=== PATIENT | female | born 1985 | race Caucasian/White ===

== ENCOUNTER → 2019-09-18 | Outpatient (CLI) | payer OTHER ==
[~2019-09-18] MED LIST: AMOX500C2 PO; DIPH50CA; DM H; FLT05NA16 NSEACH; METH4TAB PO
[2019-09-18 17:11] LABS: BASOPHILS % (AUTO) 0 % (0-10); EOSINOPHILS % (AUTO) 0 % (0-10); HEMATOCRIT 39 % (35-52); HEMOGLOBIN 12.7 G/DL (11.5-16.0); LYMPHOCYTES % (AUTO) 22 % (12-44); MEAN CORPUSCULAR HEMOGLOBIN 30 PG (25-34); MEAN CORPUSCULAR HGB CONC 33 G/DL (32-36); MEAN CORPUSCULAR VOLUME 92 FL (80-99); MEAN PLATELET VOLUME 9.3 FL (7.4-10.4); MONOCYTES # (AUTO) 0.4 X 10^3 (0.0-1.0); MONOCYTES % (AUTO) 4 % (0-12); NEUTROPHILS # (AUTO) 6.6 X 10^3 (1.8-7.8); NEUTROPHILS % (AUTO) 73 % (42-75); PLATELET COUNT 339 10^3/uL (130-400); RED CELL DISTRIBUTION WIDTH 13.3 % (10.0-14.5)
[2019-09-18 17:36] LABS: ALANINE AMINOTRANSFERASE 14 U/L (0-55); ALBUMIN 4.2 GM/DL (3.2-4.5); ALKALINE PHOSPHATASE 37 U/L (40-136); BILIRUBIN,TOTAL 0.4 MG/DL (0.1-1.0); BUN/CREATININE RATIO 12; CALCIUM 9.3 MG/DL (8.5-10.1); CARBON DIOXIDE 22 MMOL/L (21-32); CHLORIDE 104 MMOL/L (98-107); CREATININE SERUM 0.84 MG/DL (0.60-1.30); GFR ESTIMATED > 60; GLUCOSE 91 MG/DL (70-105); SODIUM 137 MMOL/L (135-145)
[2019-09-18 17:57] LABS: FREE T4 (FREE THYROXINE) 0.81 NG/DL (0.70-1.48)
== END ==
LOC: LAB 16:33
PROVIDERS: ATTEND Nurse Practitioner Family
DX: R00.2 Palpitations (principal); R55 Syncope and collapse
CPT/HCPCS: 36415; 80053; 84439; 84443; 85025; 85379

== ENCOUNTER 2019-09-25 08:14 | Outpatient (RCR) | payer OTHER | END 2019-12-24 | disposition home or self-care (01) | LOC: CARD 08:14 | PROVIDERS: ATTEND Nurse Practitioner Family | DX: R00.2 Palpitations (principal); R42 Dizziness and giddiness; R55 Syncope and collapse | CPT/HCPCS: 93225; 93226 ==

== ENCOUNTER 2020-04-07 20:39 | Emergency (ER) | payer OTHER ==
[~2020-04-07] VITALS: Ht 172.7 cm; Wt 77.1 kg
[2020-04-07] MEDS ORDERED: ONDANSETRON 4 MG (ZOFRAN) ORAL DISSOLVE TAB SL STA (21:03)
[2020-04-07] MEDS ORDERED: ANTACID SUSP 30 ML UDC (MYLANTA) PO ONE (21:15)
[2020-04-07] MEDS ORDERED: LIDOCAINE 2% VISCOUS 15 ML UDC PO ONE (21:15)
[2020-04-07] MEDS ORDERED: PANTOPRAZOLE 40 MG (PROTONIX) TAB PO ONE (21:45)
--- NOTE | 2020-04-07 21:45 | ED Chest Pain ---
General Chief Complaint: Chest Pain Stated Complaint: COVID +;CHEST PAIN;HIGH BP Nursing Triage Note: Pt ambulates to room #9 with c/o CP. Pt reports she tested + for COVID-19 on 03/30/20. Pt reports on this day at approx 2000 she began to experience medial abd discomfort radiating to R arm. Pt describes discomfort as "pressure." Pt reports discomfot to be intermittent. Pt denies fever, chills, or SOA. A&OX4. Nursing Sepsis Screen: No Definite Risk Source: patient Exam Limitations: no limitations History of Present Illness Date Seen by Provider: Apr 07, 2020 Time Seen by Provider: 20:55 Initial Comments This 34-year-old woman presents to the ER by private vehicle with history as stated above in nursing triage note. Her chest pain really seems to be more of an epigastric pain and tenderness that radiates into the chest. She had a throbbing pain in the right arm that has resolved. She is not significantly short of breath and oxygen saturation is 100 percent on room air. Pain is worse with deep breathing and epigastric palpation. Allergies and Home Medications Allergies Coded Allergies: No Known Drug Allergies (Unverified Allergy, Mild, 12/03/08) Home Medications Amoxicillin 500 Mg Capsule, 1 EACH PO QID FOR INFECTION Prescribed by: OZIEL RUBIO on 12/03/082311 Fluticasone Propionate 16 Gm [place], 2 SPRAYS NSEACH DAILY FOR SINUSES Prescribed by: OZIEL RUBIO on 12/03/082311 Methylprednisolone 4 Mg/Dose-Pack Tab.ds.pk, 0 PO UD FOR SINUSES. Prescribed by: OZIEL RUBIO on 12/03/082311 Patient Home Medication List Home Medication List Reviewed: Yes Review of Systems Review of Systems Constitutional: no symptoms reported EENTM: No Symptoms Reported Respiratory: See HPI Cardiovascular: No Symptoms Reported Gastrointestinal: See HPI Genitourinary: No Symptoms Reported Musculoskeletal: no symptoms reported Skin: no symptoms reported Psychiatric/Neurological: No Symptoms Reported Endocrine: No Symptoms Reported Hematologic/Lymphatic: No Symptoms Reported Past Oaandkb-Ejylfv-Dclkoq Hx Patient Social History Alcohol Use: Rarely Uses Number of Drinks Today: 0 Recreational Drug Use: No Smoking Status: Current Someday Smoker Type Used: Cigarettes 2nd Hand Smoke Exposure: Yes Recent Foreign Travel: No Contact w/Someone Who Travel: No Recent Infectious Disease Expo: No Recent Hopitalizations: No Seasonal Allergies Seasonal Allergies: No Past Medical History Surgeries: No Respiratory: No Cardiac: No Neurological: No Genitourinary: No Gastrointestinal: No Musculoskeletal: No Endocrine: No HEENT: No Cancer: No Psychosocial: No Integumentary: No Physical Exam Vital Signs Vital Signs - First Documented 04/07/20 04/07/20 20:55 20:58 Temp 36.6 Pulse 98 Resp 18 B/P (MAP) 150/83 (105) Pulse Ox 100 O2 Delivery Room Air Capillary Refill : Less Than 3 Seconds Height, Weight, BMI Height: '" Weight: lbs. oz. 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, 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 Skin: Normal Color, Warm/Dry Progress/Results/Core Measures Results/Orders My Orders Orders - ASHA SOTELO MD Ekg Tracing (04/07/20 21:03) Ondansetron Oral Dissolve Tab (Zofran (04/07/20 21:03) Lidocaine 2% Viscous 15 Ml (Xylocaine Vi (04/07/20 21:15) Antacid Suspension (Mylanta Suspension (04/07/20 21:15) Pantoprazole Tablet (Protonix Tablet) (04/07/20 21:45) Medications Given in ED Current Medications Medications Dose Ordered Sig/Michelle Route Start Time Stop Time Status Last Admin Dose Admin Al Hydrox/Mg Hydrox/Simethicone 30 ml ONCE ONCE PO 04/07/20 21:15 04/07/20 21:16 DC 04/07/20 21:11 30 ML Lidocaine HCl 15 ml ONCE ONCE PO 04/07/20 21:15 04/07/20 21:16 DC 04/07/20 21:11 15 ML Pantoprazole Sodium 40 mg ONCE ONCE PO 04/07/20 21:45 04/07/20 21:46 DC 04/07/20 21:50 40 MG Vital Signs/I&O 04/07/20 04/07/20 04/07/20 20:55 20:58 21:55 Temp 36.6 36.6 Pulse 98 84 Resp 18 17 B/P (MAP) 150/83 (105) 129/79 (105) Pulse Ox 100 99 O2 Delivery Room Air Room Air Room Air Blood Pressure Mean: 105 Progress Progress Note : Progress Note Pain improved with GI cocktail and patient felt that this addressed her complaints. Antiacid therapy was recommended and avoidance of NSAIDs was advised as well. See discharge instructions. Initial ECG Impression Date: Apr 07, 2020 Initial ECG Impression Time: 21:06 Initial ECG Rate: 88 Initial ECG Rhythm: Normal Sinus Initial ECG Intervals: WA Initial ECG Impression: Normal Comment Normal sinus rhythm with no ST elevation or depression. WA interval 239 ms. No axis deviation. Departure Impression Primary Impression: Epigastric pain Additional Impressions: Atypical chest pain COVID-19 Disposition: 01 HOME, SELF-CARE Condition: Improved Departure-Patient Inst. Decision time for Depature: 21:41 Referrals: RANDY BLAS MD (PCP/Family) Primary Care Physician Patient Instructions: Acid Reflux and GERD in Adults (DC), Coronavirus Disease 2019 (COVID-19) Overview, Gastritis, Acute Pain, Adult (DC) Add. Discharge Instructions: Gastritis and acid reflux is suspected as the cause of your pain. You may use Tylenol (acetaminophen) up to 1000 mg every 6 hours as needed for pain and fever. Avoid use of ibuprofen if possible as this may worsen stomach pain and acid reflux in the long run. Use an antacid medication such as omeprazole 20 mg or Pepcid (famotidine) 20 mg twice daily for the next couple of weeks. Continue to use for at least 1 to 2 weeks even if pain improves. For additional relief you may add Tums. These medications may be purchased [id number]. Because you have COVID-19, you'l l need someone to pick these up for you while you are quarantine. Return to care if you have worsening symptoms or if use of antacids does not improve your pain. Avoid things that can irritate your stomach further such as large meals, fatty or greasy foods, spicy foods, acidic foods, eating close to bedtime, carbonation, caffeine, chocolate, alcohol, tobacco, or anything else you know irritates your stomach. All discharge instructions reviewed with patient and/or family. Voiced understanding. Copy Copies To 1: RANDY BLAS MD, JOSHUA T MD Apr 07, 2020 21:45
[2020-04-07 21:55] VITALS: BP 129/79
== END 2020-04-07 21:55 | disposition home or self-care (01) ==
LOC: EDUNIT# 20:39 → ER 20:42
DX: R10.13 Epigastric pain (principal); R07.89 Other chest pain; U07.1 COVID-19; F17.210 Nicotine dependence, cigarettes, uncomplicated; Z79.52 Long term (current) use of systemic steroids
CPT/HCPCS: 93005

== ENCOUNTER 2022-10-07 16:56 | Emergency (ER) | payer OTHER ==
[~2022-10-07] VITALS: Ht 172 cm; Wt 83.0 kg
[2022-10-07 17:00] VITALS: BP 167/95
[2022-10-07] MEDS ORDERED: ASPIRIN 81 MG CHEW (CHILDREN'S ASA) PO ONE (17:15)
[2022-10-07 17:18] LABS: BASOPHILS # (AUTO) 0.1 10^3/uL (0.0-0.1); BASOPHILS % (AUTO) 1 % (0-10); EOSINOPHILS # (AUTO) 0.1 10^3/uL (0.0-0.3); EOSINOPHILS % (AUTO) 1 % (0-10); HEMATOCRIT 40 % (35-52); HEMOGLOBIN 13.4 g/dL (11.5-16.0); LYMPHOCYTES # (AUTO) 3.4 10^3/uL (1.0-4.0); LYMPHOCYTES % (AUTO) 34 % (12-44); MEAN CORPUSCULAR HEMOGLOBIN 31 pg (25-34); MEAN CORPUSCULAR HGB CONC 34 g/dL (32-36); MEAN CORPUSCULAR VOLUME 91 fL (80-99); MEAN PLATELET VOLUME 9.2 fL (9.0-12.2); MONOCYTES # (AUTO) 0.6 10^3/uL (0.0-1.0); MONOCYTES % (AUTO) 6 % (0-12); NEUTROPHILS # (AUTO) 5.8 10^3/uL (1.8-7.8); NEUTROPHILS % (AUTO) 58 % (42-75); PLATELET COUNT 389 10^3/uL (130-400)
[2022-10-07 17:22] LABS: ALBUMIN 4.5 GM/DL (3.2-4.5)
--- NOTE | 2022-10-07 17:22 | ED Chest Pain ---
General Chief Complaint: Chest Pain Stated Complaint: CHEST PAIN Nursing Triage Note: PT AMB TO RM 6 CO OF CHEST PRESSURE, HEAVINESS SINCE LAST PM, PT RATES DISCOMFORT 7/10. PT HAS TAKEN XANAX THOUGHT MAYBE D/T ANXIETY. PT VAPES DAILY AND IS CONTROL. PT WAS SENT BY [facility] Source: patient Exam Limitations: no limitations (JESUS VENCES) History of Present Illness Date Seen by Provider: Oct 07, 2022 Time Seen by Provider: 17:20 Initial Comments Patient is a 37-year-old female with a history of anxiety presents to the ED for chest pain. She states yesterday evening pain started between her shoulder blades. This pain migrated to the front part of her chest. Initially was sharp and constant. She took a dose of Xanax last night as she thought it was a panic attack without significant improvement. The pain remained today feels more like heaviness and pressure. She has arm heaviness bilateral. Associated lightheadedness, nausea. She does have a history of tachycardia. She denies of any recent travels or surgeries but does take control. No history of PE. No family history of sudden cardiac or history of IN at an early age. She went to [facility] and was recommended come to ED for further evaluation of the chest pain. She refused anything for pain at this time. Rates the heaviness 7 out of 10. Difficulty taking deep breaths secondary to the discomfort. (JESUS VENCES) Allergies and Home Medications Allergies Coded Allergies: No Known Drug Allergies (Unverified Allergy, Mild, 12/03/08) Patient Home Medication List Home Medication List Reviewed: Yes (JESUS VENCES) Amoxicillin (Amoxicillin) 500 Mg Capsule, 1 EACH PO QID Prescribed by: OZIEL RUBIO on 12/03/082311 Diphenhydramine Hcl (Benadryl) 50 Mg Capsule, (Reported) Entered as Reported by: KAMAR ROSA on 12/03/082033 Dm Hb/Pe/Acetaminophen/Chlorph (Comtrex Cold & Cough Caplet) 1 Each Tablet, (Reported) Entered as Reported by: KAMAR ROSA on 12/03/082033 Fluticasone Propionate (Flonase 0.05% Nasal [place]) 16 Gm [place], 2 SPRAYS NSEACH DAILY Prescribed by: OZIEL RUBIO on 12/03/082311 Methylprednisolone (Medrol Dose Pack) 4 Mg/Dose-Pack Tab.ds.pk, 0 PO UD Prescribed by: OZIEL RUBIO on 12/03/082311 Review of Systems Review of Systems Constitutional: No chills, No diaphoresis, No malaise, No weakness EENTM: No Double Vision, No Eye Pain Respiratory: Denies Cough, Denies Orthopnea; Shortness of Air Cardiovascular: Chest Pain; Denies Edema Gastrointestinal: Denies Abdominal Pain, Denies Diarrhea, Denies Nausea, Denies Vomiting Genitourinary: Denies Burning, Denies Discharge, Denies Frequency, Denies Flank Pain Musculoskeletal: back pain; No joint pain Skin: No change in color Psychiatric/Neurological: Anxiety (JESUS VENCES) Past Jwhqkpe-Jubsco-Jzpeyi Hx Patient Social History Tobacco Use?: No Use of E-Cig and/or Vaping dev: Yes E-Cig or Vaping type used: Nicotine Use of E-Cig and/or Vaping Oneil: Current Everyday User Substance use?: No Alcohol Use?: Yes Alcohol type: Beer Alcohol Frequency: Couple times a week Pt feels they are or have been: No (JESUS VENCES) Immunizations Up To Date Influenza Vaccine Up-to-Date: No; Not Current First/Initial COVID19 Vaccinat: YES Second COVID19 Vaccination Kael: YES (JESUS VENCES) Seasonal Allergies Seasonal Allergies: No (JESUS VENCES) Past Medical History Surgery/Hospitalization HX: ANXIETY, SINUS TACH Surgeries: No Respiratory: No Cardiac: No Neurological: No Genitourinary: No Gastrointestinal: No Musculoskeletal: No Endocrine: No HEENT: No Cancer: No Psychosocial: No Integumentary: No (JESUS VENCES) Physical Exam Vital Signs Vital Signs - First Documented 10/07/22 17:00 Temp 36.8 Pulse 85 Resp 12 B/P (MAP) 167/95 (119) Pulse Ox 100 (ASHA SOTELO MD) Vital Signs Capillary Refill : Less Than 3 Seconds (JESUS VENCES) Height, Weight, BMI Height: '" Weight: lbs. oz. 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 as Tested Skin: Normal Color, Warm/Dry (JESUS VENCES) Progress/Results/Core Measures Results/Orders Lab Results Laboratory Tests Test 10/07/22 17:02 10/07/22 19:44 Range/Units White Blood Count 10.0 4.3-11.0 10^3/uL Red Blood Count 4.39 3.80-5.11 10^6/uL Hemoglobin 13.4 11.5-16.0 g/dL Hematocrit 40 35-52 % Mean Corpuscular Volume 91 80-99 fL Mean Corpuscular Hemoglobin 31 25-34 pg Mean Corpuscular Hemoglobin Concent 34 32-36 g/dL Red Cell Distribution Width 12.1 10.0-14.5 % Platelet Count 389 130-400 10^3/uL Mean Platelet Volume 9.2 9.0-12.2 fL Immature Granulocyte % (Auto) 0 % Neutrophils (%) (Auto) 58 42-75 % Lymphocytes (%) (Auto) 34 12-44 % Monocytes (%) (Auto) 6 0-12 % Eosinophils (%) (Auto) 1 0-10 % Basophils (%) (Auto) 1 0-10 % Neutrophils # (Auto) 5.8 1.8-7.8 10^3/uL Lymphocytes # (Auto) 3.4 1.0-4.0 10^3/uL Monocytes # (Auto) 0.6 0.0-1.0 10^3/uL Eosinophils # (Auto) 0.1 0.0-0.3 10^3/uL Basophils # (Auto) 0.1 0.0-0.1 10^3/uL Immature Granulocyte # (Auto) 0.0 0.0-0.1 10^3/uL Prothrombin Time 13.9 12.2-14.7 SEC INR Comment 1.0 0.8-1.4 Activated Partial Thromboplast Time 27 24-35 SEC D-Dimer 0.96 H 0.00-0.49 UG/ML Sodium Level 138 135-145 MMOL/L Potassium Level 3.6 3.6-5.0 MMOL/L Chloride Level 105 98-107 MMOL/L Carbon Dioxide Level 24 21-32 MMOL/L Anion Gap 9 5-14 MMOL/L Blood Urea Nitrogen 12 7-18 MG/DL Creatinine 1.32 H 0.60-1.30 MG/DL Estimat Glomerular Filtration Rate 53 BUN/Creatinine Ratio 9 Glucose Level 90 70-105 MG/DL Calcium Level 9.6 8.5-10.1 MG/DL Corrected Calcium 9.2 8.5-10.1 MG/DL Magnesium Level 2.0 1.6-2.4 MG/DL Total Bilirubin 0.4 0.1-1.0 MG/DL Aspartate Amino Transf (AST/SGOT) 15 5-34 U/L Alanine Aminotransferase (ALT/SGPT) 16 0-55 U/L Alkaline Phosphatase 37 L 40-136 U/L Myoglobin 16.2 10.0-92.0 NG/ML Troponin I < 0.028 < 0.028 <0.028 NG/ML B-Type Natriuretic Peptide 22.1 <100.0 PG/ML Total Protein 8.7 H 6.4-8.2 GM/DL Albumin 4.5 3.2-4.5 GM/DL Lipase 25 8-78 U/L (ASHA SOTELO MD) Vital Signs/I&O 10/07/22 17:00 Temp 36.8 Pulse 85 Resp 12 B/P (MAP) 167/95 (119) Pulse Ox 100 (ASHA SOTELO MD) Blood Pressure Mean: 119 Departure Communication (PCP) Reviewed previous ER visits, H&P's, testing. Patient presents ED with chest pain, back pain short of breath. History of anxiety. She took a Xanax last night when the pain started but did not have much improvement. Increasing pain throughout the day. Due to patient's complaint cardiac work-up was initiated with chest x-ray, EKG, CBC, CMP, troponin. PERC rule 1 criteria secondary to contraceptive use. Denies any leg pain, leg swelling. No known cardiac history. Denies history of COPD or asthma. Exam without evidence of murmur. EKG showed normal sinus rhythm without evidence of ST elevation, depression, arrhythmia. Patient CBC, CMP was otherwise unremarkable. Chest x-ray negative for pneumonia, pneumothorax, mediastinal widening. Did have an elevated D-dimer 0.95. CT angio of the chest was ordered and was negative for PE, pleural effusion, pneumonia. Second 2-hour troponin was negative. Patient has a low heart score of 1. Low probability of a cardiac event in the next 30 days. Due to unremarkable work-up, improvement of symptoms patient will be discharged. Outpatient follow-up with primary care physician for further evaluation. If any worsening symptoms return back to ED for further evaluation. Patient without any epigastric abdominal tenderness. Normal bowel sounds throughout. No pain with eating Patient was given a dose of Ativan to see if this would help with her pressure. She did notice some relief. 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 (JESUS VENCES) Impression Primary Impression: Chest pain Disposition: 01 HOME, SELF-CARE Condition: Stable Departure-Patient Inst. Decision time for Depature: 20:04 (JESUS VENCES) Referrals: RANDY BLAS MD (PCP/Family) Primary Care Physician Patient Instructions: Chest Pain (DC) ATTENDING PHYSICIAN NOTE: I was physically present as attending physician in the emergency department during the care of this patient, but I was not directly involved in the decision making or delivery of care for this patient. (ASHA SOTELO MD) JESUS VENCES Oct 07, 2022 17:22 ASHA SOTELO MD Oct 08, 2022 09:27
[2022-10-07 17:23] LABS: POTASSIUM 3.6 MMOL/L (3.6-5.0)
[2022-10-07 17:24] LABS: CALCIUM 9.6 MG/DL (8.5-10.1); PROTHROMBIN TIME PATIENT 13.9 SEC (12.2-14.7)
[2022-10-07 17:25] LABS: TOTAL PROTEIN 8.7 GM/DL (6.4-8.2)
[2022-10-07 17:27] LABS: BILIRUBIN,TOTAL 0.4 MG/DL (0.1-1.0)
[2022-10-07 17:29] LABS: CREATININE SERUM 1.32 MG/DL (0.60-1.30)
--- NOTE | 2022-10-07 17:42 | Diagnostic Imaging Report ---
CLINICAL INDICATION: Patient complains of chest pressure and heaviness since last night. EXAM: Portable chest x-ray upright view. COMPARISON: None. FINDINGS: Lungs/pleura: Lungs are clear. There is no pneumothorax. There is no pleural effusion. Mediastinum: Unremarkable. Pulmonary vasculature: Unremarkable. Heart: Unremarkable. Bones/extrathoracic soft tissue: Unremarkable. IMPRESSION: There is no radiographic evidence of acute cardiopulmonary process. Dictated by: Dictated on workstation # [id number]
--- NOTE | 2022-10-07 19:28 | Diagnostic Imaging Report ---
EXAMINATION: CT angiography of the chest. TECHNIQUE: Contrast enhanced thin section helical images were obtained through the chest with intravenous contrast timed for the optimal opacification of the arterial structures per CTA protocol. Post-processing, reconstructions and interpretation of angiographic images of the vessels was performed. 3D MIP reconstructions were performed and reviewed. All CT scans use one or more of the following dose optimizing techniques: automated exposure control, MA and/or KvP adjustment based on patient size and exam type or iterative reconstruction. HISTORY: Chest pain. COMPARISON: None available. FINDINGS: There is no pulmonary embolism. There is no edema or pneumonia. No pleural effusion. No pneumothorax. No suspicious nodule. There is no axillary or supraclavicular lymphadenopathy. There is no mediastinal lymphadenopathy. Heart size is normal. There is no coronary artery calcification. No pericardial effusion. Aorta is normal in caliber. Limited views of the upper abdomen are unremarkable. There is no suspicious osseus lesion. IMPRESSION: No pulmonary embolism. Dictated by: Dictated on workstation # [id number]
[2022-10-07] MEDS ORDERED: IOHEXOL 350 MG/ML 100 ML (OMNIPAQUE 350) VIAL IV ONE (19:30)
[2022-10-07] MEDS ORDERED: NS 100 ML (IVPB) BAG IV ONE (19:30)
[2022-10-07] MEDS ORDERED: HOLD METFORMIN - RECEIVED CONTRAST 20 ML VIAL IV SCH (19:30)
[2022-10-07] MEDS ORDERED: LORazepam 0.5 MG (ATIVAN) TABLET PO STA (20:21)
== END 2022-10-07 20:45 | disposition home or self-care (01) ==
LOC: EDUNIT# 16:56 → ER 16:57
DX: R07.89 Other chest pain (principal); R79.1 Abnormal coagulation profile; R06.02 Shortness of breath; M54.9 Dorsalgia, unspecified; F17.290 Nicotine dependence, other tobacco product, uncomplicated
CPT/HCPCS: 36415; 71045; 71275; 80053; 83690; 83735; 83874; 83880; 84484; 85025; 85379; 85610; 85730; 93005; 93041